=== PATIENT | female | born 1930 | race Caucasian/White ===

== ENCOUNTER 2018-07-31 08:51 | Inpatient (IN) | payer MEDICARE, OTHER ==
[~2018-07-31] VITALS: Ht 149.8 cm; Wt 74.4 kg
[~2018-07-31 08:51] MED LIST: ASPIRIN81 M1 PO; ASPIRIN81 MG PO; CALCIUM 500 + D1 TA2 PO; CENTRUM SILVER1 TA2 PO; COMBIGAN 0.2%-010 ML OP; DEXTROMETHORPH120 ML PO; EXELON9.5 MG/24 TD; FEOSOL300 MG PO; FISH OIL; GABAPENTIN400 MG PO; LISINOPRIL10 MG PO; LISINOPRIL5 MG PO; LUMIGAN 5 ML5 ML OP; NAMENDA10 MG PO; OMEPRAZOLE40 MG PO; PHENERGAN W/ DE30 ML PO; RESTASIS0.05% OP; TYLENOL325 M2 PO; ZIAC 2.5 MG-6.21 TAB PO; ZOCOR20 MG PO; ZOLOFT50 MG PO
[2018-07-31 08:55] VITALS: BP 111/36
[2018-07-31 09:42] LABS: BASO # 0.1 10*3/uL (0.0-0.1); BASO % 0.4 % (0.0-1.0); EOS # 0.1 10*3/uL (0.0-0.4); EOS % 0.8 % (1.0-4.0); HEMATOCRIT 32.3 % (37.0-47.0); HEMOGLOBIN 10.3 g/dl (12.0-16.0); LYMPH # 0.9 10*3/uL (1.3-4.4); LYMPH % 6.5 % (27.0-41.0); MEAN CELL VOLUME 93.4 fl (81.0-99.0); MEAN CORPUSCULAR HGB 29.8 pg (27.0-31.0); MEAN CORPUSCULAR HGB CONC 31.9 g/dl (33.0-37.0); MEAN PLATELET VOLUME 11.1 fl (9.6-12.3); MONO # 1.2 10*3/uL (0.1-1.0); MONO % 8.3 % (3.0-9.0); NEUT # 11.9 10*3/uL (2.3-7.9); NEUT % 83.6 % (47.0-73.0); PLATELET COUNT AUTOMATED 209 10*3/uL (130-400); RED BLOOD COUNT 3.46 10*6/uL (4.10-5.10); RED CELL DISTRI WIDTH 13.6 % (0-14.5); WHITE BLOOD COUNT 14.2 10*3/uL (4.8-10.8)
[2018-07-31 09:56] LABS: ALBUMIN 3.2 gm/dl (3.1-4.5); CREATININE 1.88 mg/dL (0.55-1.02); POTASSIUM 4.6 mmol/L (3.5-5.1); TOTAL PROTEIN 7.7 gm/dL (6.4-8.2)
[2018-07-31 09:59] VITALS: BP 98/54
[2018-07-31] MEDS ORDERED: NORVASC10 MG PO (12:28)
[2018-07-31 16:00] VITALS: BP 114/50
[2018-07-31 20:00] VITALS: BP 98/65
[2018-08-01] VITALS: BP 102/42; BP 142/121
[2018-08-01 06:24] LABS: BASO % 0.3 % (0.0-1.0); EOS # 0.3 10*3/uL (0.0-0.4); EOS % 2.4 % (1.0-4.0); HEMATOCRIT 31.2 % (37.0-47.0); HEMOGLOBIN 9.7 g/dl (12.0-16.0); LYMPH % 9.7 % (27.0-41.0); MEAN CELL VOLUME 96.3 fl (81.0-99.0); MEAN CORPUSCULAR HGB 29.9 pg (27.0-31.0); MEAN CORPUSCULAR HGB CONC 31.1 g/dl (33.0-37.0); MEAN PLATELET VOLUME 11.3 fl (9.6-12.3); MONO # 0.9 10*3/uL (0.1-1.0); MONO % 8.4 % (3.0-9.0); NEUT # 8.2 10*3/uL (2.3-7.9); NEUT % 78.7 % (47.0-73.0); PLATELET COUNT AUTOMATED 197 10*3/uL (130-400); RED BLOOD COUNT 3.24 10*6/uL (4.10-5.10); RED CELL DISTRI WIDTH 13.6 % (0-14.5); WHITE BLOOD COUNT 10.4 10*3/uL (4.8-10.8)
[2018-08-01 06:29] LABS: ALBUMIN 2.7 gm/dl (3.1-4.5); CREATININE 1.47 mg/dL (0.55-1.02); PHOSPHOROUS 2.4 mg/dL (2.5-4.9); POTASSIUM 4.3 mmol/L (3.5-5.1); TOTAL PROTEIN 6.8 gm/dL (6.4-8.2)
[2018-08-01 06:35] LABS: FREE T4 1.14 ng/dl (0.76-1.46); THYROID STIM HORMONE (HS) 1.56 uIU/ml (0.358-4.75)
[2018-08-01 08:00] VITALS: BP 130/40
[2018-08-01 09:22] LABS: VITAMIN D, 25-HYDROXY 16.9 ng/mL (30-100)
[2018-08-01 12:00] VITALS: BP 100/73
[2018-08-01 16:00] VITALS: BP 133/80
[2018-08-01 20:00] VITALS: BP 105/63
[2018-08-02] VITALS: BP 112/88
[2018-08-02 08:00] VITALS: BP 125/43; BP 147/45
[2018-08-02 12:00] VITALS: BP 103/42; BP 104/31; BP 117/72
[2018-08-02 20:00] VITALS: BP 130/50
[2018-08-03] VITALS: BP 140/60
[2018-08-03 06:13] LABS: BASO % 0.3 % (0.0-1.0); EOS # 0.4 10*3/uL (0.0-0.4); EOS % 4.8 % (1.0-4.0); HEMATOCRIT 30.8 % (37.0-47.0); HEMOGLOBIN 9.6 g/dl (12.0-16.0); LYMPH # 1.4 10*3/uL (1.3-4.4); LYMPH % 15.3 % (27.0-41.0); MEAN CELL VOLUME 95.7 fl (81.0-99.0); MEAN CORPUSCULAR HGB 29.8 pg (27.0-31.0); MEAN CORPUSCULAR HGB CONC 31.2 g/dl (33.0-37.0); MEAN PLATELET VOLUME 11.2 fl (9.6-12.3); MONO # 0.7 10*3/uL (0.1-1.0); MONO % 7.4 % (3.0-9.0); NEUT # 6.4 10*3/uL (2.3-7.9); NEUT % 71.5 % (47.0-73.0); PLATELET COUNT AUTOMATED 204 10*3/uL (130-400); RED BLOOD COUNT 3.22 10*6/uL (4.10-5.10); RED CELL DISTRI WIDTH 13.9 % (0-14.5); WHITE BLOOD COUNT 8.9 10*3/uL (4.8-10.8)
[2018-08-03 06:41] LABS: CREATININE 1.84 mg/dL (0.55-1.02)
[2018-08-03 08:00] VITALS: BP 125/43
[2018-08-03 12:00] VITALS: BP 104/31
[2018-08-03 16:00] VITALS: BP 103/33
[2018-08-03 20:00] VITALS: BP 97/41
[2018-08-04] VITALS: BP 127/39
[2018-08-04 08:00] VITALS: BP 130/77
[2018-08-04] MEDS ORDERED: LEVOFLOXACIN500 MG PO (10:51)
[2018-08-04] MEDS ORDERED: NORVASC5 MG PO (11:16)
== END 2018-08-04 13:25 | disposition home or self-care (01) | DRG 871 ==
LOC: ED 08:51 → 5E 10:58 → EDHOLD 10:58 → 5E 11:08
PROVIDERS: Physician Assistant; Registered Nurse
DX: A41.9 Sepsis, unspecified organism (principal); N17.0 Acute kidney failure with tubular necrosis; J15.6 Pneumonia due to other Gram-negative bacteria; J69.0 Pneumonitis due to inhalation of food and vomit; Z66 Do not resuscitate; N18.3 Chronic kidney disease, stage 3 (moderate); I12.9 Hypertensive chronic kidney disease with stage 1 through stage 4 chronic kidney disease, or unspecified chronic kidney disease; K21.9 Gastro-esophageal reflux disease without esophagitis; D50.9 Iron deficiency anemia, unspecified; H40.9 Unspecified glaucoma; E78.00 Pure hypercholesterolemia, unspecified; F03.90 Unspecified dementia, unspecified severity, without behavioral disturbance, psychotic disturbance, mood disturbance, and anxiety; Z82.0 Family history of epilepsy and other diseases of the nervous system; Z82.49 Family history of ischemic heart disease and other diseases of the circulatory system; Z79.1 Long term (current) use of non-steroidal anti-inflammatories (NSAID); Z79.82 Long term (current) use of aspirin; Z79.899 Other long term (current) drug therapy

== ENCOUNTER 2019-03-09 21:09 | Emergency (ER) | payer MEDICARE, OTHER ==
[~2019-03-09] VITALS: Ht 157.4 cm; Wt 77.4 kg
[~2019-03-09 21:09] MED LIST changes: -FEOSOL300 MG PO; +FEOSOL325 MG PO; +LEVOFLOXACIN500 MG PO; +NORVASC10 MG PO; +NORVASC5 MG PO
[2019-03-09 23:21] LABS: BASO % 0.2 % (0.0-1.0); EOS # 0.3 10*3/uL (0.0-0.4); EOS % 2.1 % (1.0-4.0); HEMATOCRIT 38.9 % (37.0-47.0); HEMOGLOBIN 12.7 g/dl (12.0-16.0); LYMPH # 1.2 10*3/uL (1.3-4.4); LYMPH % 9.9 % (27.0-41.0); MEAN CELL VOLUME 93.7 fl (81.0-99.0); MEAN CORPUSCULAR HGB 30.6 pg (27.0-31.0); MEAN CORPUSCULAR HGB CONC 32.6 g/dl (33.0-37.0); MEAN PLATELET VOLUME 10.7 fl (9.6-12.3); MONO # 0.6 10*3/uL (0.1-1.0); MONO % 5.3 % (3.0-9.0); NEUT % 82.2 % (47.0-73.0); PLATELET COUNT AUTOMATED 228 10*3/uL (130-400); RED BLOOD COUNT 4.15 10*6/uL (4.10-5.10); RED CELL DISTRI WIDTH 13.7 % (0-14.5); WHITE BLOOD COUNT 12.2 10*3/uL (4.8-10.8)
[2019-03-09 23:36] LABS: INTERNATIONAL NORM RATIO 0.9 (2.0-3.5)
[2019-03-09 23:41] LABS: ALBUMIN 3.7 gm/dl (3.1-4.5); CREATININE 1.14 mg/dL (0.55-1.02); POTASSIUM 3.6 mmol/L (3.5-5.1); TOTAL PROTEIN 7.5 gm/dL (6.4-8.2); TROPONIN I 0.035 ng/ml (<0.045)
== END 2019-03-10 00:53 | disposition other institution (70) ==
LOC: ED 21:09
PROVIDERS: Emergency Medicine
DX: R05 Cough (principal); K21.9 Gastro-esophageal reflux disease without esophagitis; E78.00 Pure hypercholesterolemia, unspecified; I12.9 Hypertensive chronic kidney disease with stage 1 through stage 4 chronic kidney disease, or unspecified chronic kidney disease; N18.3 Chronic kidney disease, stage 3 (moderate); Z79.899 Other long term (current) drug therapy; Z79.82 Long term (current) use of aspirin

== ENCOUNTER 2019-03-28 10:27 | Inpatient (IN) | payer MEDICARE, OTHER ==
[~2019-03-28] VITALS: Ht 152.4 cm; Wt 74.1 kg
--- NOTE | ~2019-03-28 | EKG ---
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
--- NOTE | ~2019-03-28 | EKG ---
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1930 Requested By: ANGELA NEWTON Order Number: [id number] Reading MD: Odalys Colbert Measurements Intervals [place] Rate: 94 P: 130 DC: 231 QRS: 173 QRSD: 125 T: 150 QT: 390 QTc: 488 Interpretive Statements Sinus rhythm Prolonged DC interval Probable left atrial enlargement RBBB Abnormal T, consider ischemia, lateral leads Compared to ECG 03/12/2019 03:46:59 First degree AV block now present T-wave abnormality now present Possible ischemia now present Prolonged QT interval no longer present Electronically Signed On 03-29-2019 8:36:15 PDT by Odalys Colbert CM:EKGRPT:ELECTROCARDIOGRAM REPORT [id number] ANGELA BONILLA DRAFT REPORT ANGELA NEWTON M.D.
--- NOTE | ~2019-03-28 | PROC NOTE ---
[place], [place] PROCEDURE NOTE NAME: ABBY SEBASTIAN UNIT #: [id number] ROOM: 420 DOCTOR: HEIDE TOURE BIRTHDATE: [birth year] DOS: 03/28/2019 MODIFIED BARIUM SWALLOW LOCATION: [facility]. ROOM: 420. BED: 1. ORDERING PHYSICIAN: Dr. Brooks. RADIOLOGIST: Dr. Castellanos. BACKGROUND INFORMATION: The patient, an 89-year-old female was seen for modified barium swallow. This test was ordered due to suspected aspiration. The patient's nurse reported that she has been displaying a week continue cough after drinking fluids. The patient was admitted from the residential with dyspnea, sepsis and pneumonitis. Medical history also includes dementia. The patient underwent a barium swallow on 03/26/2019 and severe reflux was noted. For today's assessment, she was confused, but able to follow commands. The patient was noted to be aphonic, which had not been noted previously as the patient has been seen in the past by this department. She currently receives a regular diet and thin liquids. Oral peripheral examination revealed presence of natural teeth with some back teeth missing. Lingual, labial, and buccal skills were within functional limits in terms of strength, range of motion, and coordination. The patient was able to volitionally cough. She was not able to volitionally swallow. METHODS AND MATERIALS USED FOR THE EXAM: The patient was positioned in the lateral plane and the exam was viewed under fluoroscopy. The patient was presented with a variety of consistencies including applesauce mixed with barium given in half teaspoon amounts, barium-coated cookie taken in bite size piece and nectar-thick barium taken by cup. ORAL PHASE: The patient achieved adequate labial seal around cup and spoon with no anterior loss. Bolus formation and transit were adequate. Mastication was adequate. Tongue to palate contact was within normal limits. Tongue to posterior pharyngeal wall contact was moderate to severely impaired. Velar functioning was within normal limits with no nasal regurgitation. PHARYNGEAL PHASE: The pharyngeal swallow was severely delayed with all consistencies given. The patient was first presented with pureed consistency. This pooled in the vallecula prior to initiation of the swallow. She was given cues to attempt to swallow and finally when attempting to swallow began to aspirate on the residue in her pharynx. When given, barium"coated cookie, aspiration occurred during the swallow due to reduced laryngeal elevation and epiglottic function. The patient was next given a nectar thick liquid by cup and again swallow initiation was delayed and the patient did aspirate before the swallow due to the residue in the pharynx. [place], [place] PROCEDURE NOTE NAME: ABBY SEBASTIAN UNIT #: [id number] ROOM: 420 DOCTOR: HEIDE TOURE BIRTHDATE: [birth year] ESOPHAGEAL PHASE: This phase of the swallow was not formally assessed during this exam. IMPRESSIONS AND RECOMMENDATIONS: Based upon assessment results, this 89-year-old patient presents with a [id number] oropharyngeal dysphagia characterized by severely delayed swallow initiation and aspiration before and during the swallow as well as pooling in the pharynx. Recommend alternate means of nutrition due to severity of swallowing skills. Followup therapy is recommended focusing on indirect therapy tasks to work towards improvement of swallowing skills including thermal stimulation to improve initiation of swallow and pharyngeal strengthening exercises. Results and recommendations were shared with the patient's nurse who verbalized understanding. Thank you very much for this referral. Should you have any questions regarding this patient, please contact the speech pathologist at [phone]. HEIDE TOURE CM:PROCNOTE:PROCEDURE NOTE [id number] HEIDE TOURE
--- NOTE | ~2019-03-28 | EKG ---
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
[2019-03-28 10:33] VITALS: BP 91/43
[2019-03-28 10:45] LABS: BASO # 0.1 10*3/uL (0.0-0.1); BASO % 0.4 % (0.0-1.0); EOS # 0.3 10*3/uL (0.0-0.4); EOS % 2.6 % (1.0-4.0); HEMATOCRIT 40.5 % (37.0-47.0); HEMOGLOBIN 13.2 g/dl (12.0-16.0); LYMPH # 0.8 10*3/uL (1.3-4.4); LYMPH % 5.8 % (27.0-41.0); MEAN CELL VOLUME 93.3 fl (81.0-99.0); MEAN CORPUSCULAR HGB 30.4 pg (27.0-31.0); MEAN CORPUSCULAR HGB CONC 32.6 g/dl (33.0-37.0); MEAN PLATELET VOLUME 11.2 fl (9.6-12.3); MONO # 0.8 10*3/uL (0.1-1.0); MONO % 6.3 % (3.0-9.0); NEUT # 10.9 10*3/uL (2.3-7.9); NEUT % 84.5 % (47.0-73.0); PLATELET COUNT AUTOMATED 217 10*3/uL (130-400); RED BLOOD COUNT 4.34 10*6/uL (4.10-5.10); RED CELL DISTRI WIDTH 13.8 % (0-14.5); WHITE BLOOD COUNT 12.9 10*3/uL (4.8-10.8)
[2019-03-28 10:57] LABS: ACT PARTIAL THROMBO TIME 38.9 SECONDS (20.0-32.1)
[2019-03-28 11:01] LABS: ALBUMIN 3.6 gm/dl (3.1-4.5); CREATININE 1.36 mg/dL (0.55-1.02); POTASSIUM 3.6 mmol/L (3.5-5.1)
[2019-03-28 11:05] LABS: TROPONIN I 0.067 ng/ml (<0.045)
[2019-03-28 11:28] VITALS: BP 100/53
[2019-03-28 12:10] VITALS: BP 103/71
[2019-03-28] MEDS ORDERED: NEURONTIN300 MG PO (13:12)
[2019-03-28] MEDS ORDERED: POTASSIUM CHLO20 ME3 PO (13:13)
[2019-03-28] MEDS ORDERED: TEARS NATURALE,15 ML OPH (13:14)
[2019-03-28] MEDS ORDERED: PROTONIX40 M2 PO (13:15)
[2019-03-28 16:00] VITALS: BP 134/65
[2019-03-28 20:00] VITALS: BP 140/45
[2019-03-29 06:33] LABS: BUN 19 mg/dl (7-24); CHLORIDE 111 mmol/L (98-107); CHOLESTEROL 195 mg/dL (<200); CREATININE 1.02 mg/dL (0.55-1.02); HDL CHOLESTEROL 66 mg/dl (40-60); LDL CHOLESTEROL 108 mg/dL (9-159); PHOSPHOROUS 2.9 mg/dL (2.5-4.9); POTASSIUM 3.4 mmol/L (3.5-5.1); SODIUM 145 mmol/L (136-145); TRIGLYCERIDES 107 mg/dl (<150); VLDL CHOLESTEROL 21 mg/dL (6-40)
[2019-03-29 06:41] LABS: BASO % 0.3 % (0.0-1.0); EOS # 0.1 10*3/uL (0.0-0.4); EOS % 0.6 % (1.0-4.0); FREE T4 1.36 ng/dl (0.76-1.46); HEMATOCRIT 39.4 % (37.0-47.0); HEMOGLOBIN 12.4 g/dl (12.0-16.0); LYMPH # 0.9 10*3/uL (1.3-4.4); LYMPH % 8.6 % (27.0-41.0); MEAN CORPUSCULAR HGB 30.4 pg (27.0-31.0); MEAN CORPUSCULAR HGB CONC 31.5 g/dl (33.0-37.0); MEAN PLATELET VOLUME 11.4 fl (9.6-12.3); MONO # 0.5 10*3/uL (0.1-1.0); MONO % 4.4 % (3.0-9.0); NEUT # 9.2 10*3/uL (2.3-7.9); NEUT % 85.8 % (47.0-73.0); PLATELET COUNT AUTOMATED 177 10*3/uL (130-400); RED BLOOD COUNT 4.08 10*6/uL (4.10-5.10); RED CELL DISTRI WIDTH 13.9 % (0-14.5); WHITE BLOOD COUNT 10.7 10*3/uL (4.8-10.8)
[2019-03-29 06:59] LABS: MEAN CELL VOLUME 96.6 fl (81.0-99.0)
[2019-03-29 08:00] VITALS: BP 142/70
[2019-03-29 08:41] LABS: VITAMIN D, 25-HYDROXY 16.1 ng/mL (30-100)
[2019-03-29 12:04] VITALS: BP 123/94
[2019-03-29 15:58] VITALS: BP 124/80
== END 2019-03-29 18:47 | disposition hospice, home (50) | DRG 871 ==
LOC: ED 10:27 → 4E 11:48 → EDHOLD 11:48 → 4E 11:58
PROVIDERS: Emergency Medicine; Internal Medicine; ADMIT Internal Medicine
PROC: BD11YZZ Fluoroscopy of Esophagus using Other Contrast (ICD-10-PCS; principal; 2019-03-28)
PROC: BD1BYZZ Fluoroscopy of Mouth/Oropharynx using Other Contrast (ICD-10-PCS; principal; 2019-03-28)
DX: A41.9 Sepsis, unspecified organism (principal); J18.9 Pneumonia, unspecified organism; N17.0 Acute kidney failure with tubular necrosis; E86.0 Dehydration; R13.10 Dysphagia, unspecified; N18.3 Chronic kidney disease, stage 3 (moderate); F32.9 Major depressive disorder, single episode, unspecified; F41.9 Anxiety disorder, unspecified; F03.90 Unspecified dementia, unspecified severity, without behavioral disturbance, psychotic disturbance, mood disturbance, and anxiety; I12.9 Hypertensive chronic kidney disease with stage 1 through stage 4 chronic kidney disease, or unspecified chronic kidney disease; I25.10 Atherosclerotic heart disease of native coronary artery without angina pectoris; E78.5 Hyperlipidemia, unspecified; L89.890 Pressure ulcer of other site, unstageable; G89.29 Other chronic pain; K21.9 Gastro-esophageal reflux disease without esophagitis; H40.9 Unspecified glaucoma; E78.00 Pure hypercholesterolemia, unspecified; E87.6 Hypokalemia; E83.41 Hypermagnesemia; I95.9 Hypotension, unspecified; R73.9 Hyperglycemia, unspecified; R74.8 Abnormal levels of other serum enzymes; I44.0 Atrioventricular block, first degree; D50.9 Iron deficiency anemia, unspecified; E87.8 Other disorders of electrolyte and fluid balance, not elsewhere classified; R68.89 Other general symptoms and signs; R13.12 Dysphagia, oropharyngeal phase; Z91.041 Radiographic dye allergy status; Z79.899 Other long term (current) drug therapy; Z79.82 Long term (current) use of aspirin; Z82.49 Family history of ischemic heart disease and other diseases of the circulatory system; Z82.0 Family history of epilepsy and other diseases of the nervous system; Z66 Do not resuscitate; Z51.5 Encounter for palliative care